=== PATIENT | female | born 2000 | race Asian ===

== ENCOUNTER 2018-06-08 19:52 | Emergency (ER) | payer OTHER ==
[~2018-06-08] VITALS: Ht 154.9 cm; Wt 54.4 kg
[2018-06-08 19:55] VITALS: BP 147/90
--- NOTE | 2018-06-08 19:58 | NUR ---
PT TRIAGED AND AMBULATED TO ED BED 11, REPORT TO BO DAVIS
--- NOTE | 2018-06-08 20:15 | NUR ---
Patient taken to XRAY via wheelchair by tech.
--- NOTE | 2018-06-08 20:34 | NUR ---
Patient returned from XRAY. RN re-evaluating patient at bedside.
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
[2018-06-08 20:45] VITALS: BP 139/84
--- NOTE | 2018-06-08 20:45 | NUR ---
Patient discharged with v/s stable. Written and verbal after care instructions given and explained. Patient verbalized understanding. Ambulatory with steady gait. All questions addressed prior to discharge. Advised to follow up with PMD.
== END 2018-06-08 20:45 | disposition home or self-care (01) ==
LOC: MED 19:52
DX: S09.92XA Unspecified injury of nose, initial encounter (principal); R04.0 Epistaxis; W20.8XXA Other cause of strike by thrown, projected or falling object, initial encounter; Y93.89 Activity, other specified; Y92.89 Other specified places as the place of occurrence of the external cause; Y99.8 Other external cause status
CPT/HCPCS: 70150; 99284